=== PATIENT | male | born 1960 | race Caucasian/White ===

== ENCOUNTER → 2016-12-09 | Outpatient (CLI) | payer OTHER ==
--- NOTE | 2016-12-09 13:43 | MR ---
EXAMINATION TYPE: MR shoulder LT wo con DATE OF EXAM: 12/09/2016 COMPARISON: NONE HISTORY: Left shoulder pain TECHNIQUE: Multiplanar, multisequence imaging of the left shoulder is performed without contrast. FINDINGS: Rotator Cuff: There is abnormal signal at the conjoined portion of the insertion of the supraspinatus and infraspinatus tendons measuring 6 mm compatible with a partial tear no evidence of retraction. Acromioclavicular Joint: AC joint appears to be narrowed secondary to hypertrophic changes. Mild mass effect or impingement noted on the rotator cuff. Glenohumeral Joint: Glenohumeral joint is maintained. Inferior glenohumeral ligament appears to be in tact although there is edema along the axillary pouch. Correlate for ligamentous sprain. Labrum: There is abnormal signal adjacent to the posterior superior labrum which may represent a tiny para labral cyst. Tear involving the posterior superior labrum suspected. Biceps Tendon: The long head of biceps is in normal location within bicipital groove. Bone marrow signal: No focal abnormal marrow signal is appreciated. IMPRESSION: 1. There is a 6 mm tear conjoined portion of the rotator cuff tendon at the level of insertion with n o retraction. 2. Arthropathy of the AC joint with mild impingement. 3. Findings suspicious for tear posterior superior labrum. 4. Findings suggestive of a inferior glenohumeral ligament sprain.
== END | disposition home or self-care (01) ==
LOC: RADMRIMAIN 12:37
PROVIDERS: ATTEND Internal Medicine
DX: M75.102 Unspecified rotator cuff tear or rupture of left shoulder, not specified as traumatic (principal); M19.012 Primary osteoarthritis, left shoulder; M25.812 Other specified joint disorders, left shoulder

== ENCOUNTER → 2017-01-21 | Outpatient (CLI) | payer OTHER ==
--- NOTE | 2017-01-21 08:23 | US ---
EXAMINATION TYPE: US liver DATE OF EXAM: 01/21/2017 COMPARISON: Liver ultrasound December 13, 2015 CLINICAL HISTORY: B18.2 CHR VIRAL HEP C. Annual check for hep C, no complaints of pain EXAM MEASUREMENTS: Liver Length: 14.1 cm Gallbladder Wall: 0.2 cm CBD: 0.6 cm Right Kidney: 10.0 x 5.0 x 5.9 cm Pancreas: wnl Liver: wnl, appropriate flow within the portal vn Gallbladder: wnl Evidence for sonographic Naranjo's sign: no CBD: wnl Right Kidney: wnl Scanning of liver shows no worrisome mass or ductal dilatation. Normal monophasic hepatopedal flow to liver is seen in main portal vein on last image saved. IMPRESSION: No worrisome intrahepatic mass or intrahepatic ductal dilatation is seen.
== END | disposition home or self-care (01) ==
LOC: RADUSWWP 06:55
DX: B18.2 Chronic viral hepatitis C (principal)
CPT/HCPCS: 76705

== ENCOUNTER → 2017-01-23 | Outpatient (CLI) | payer OTHER ==
[2017-01-23 11:45] LABS: Prothrombin Time 10.1 sec (9.0-12.0)
[2017-01-23 12:15] LABS: Bilirubin, Delta 0.3 mg/dL (0.0-0.2); Total Bilirubin 0.3 mg/dL (0.2-1.3); Total Protein 8.3 g/dL (6.3-8.2)
[2017-01-25 09:28] LABS: Hepatits C Virus RNA, Quant <12 IU/mL (<12); LOG HCV IU/mL <1.08 (<1.08)
== END | disposition home or self-care (01) ==
LOC: LABWHC1 10:48
PROVIDERS: ATTEND Physician Assistant
DX: B18.2 Chronic viral hepatitis C (principal); E78.5 Hyperlipidemia, unspecified; R53.83 Other fatigue
CPT/HCPCS: 36415; 80051; 80076; 81241; 85025; 85610; 85730; 87522; 93005

== ENCOUNTER → 2017-01-23 | Outpatient (CLI) | payer OTHER ==
[2017-01-23 11:07] LABS: EKG EKG PERFORMED
[2017-01-23 11:36] LABS: Basophils % (A) 0 %; CH 30.7; Eosinophils # (A) 0.1 k/uL (0-0.7); Eosinophils % (A) 1 %; HCT 46.3 % (39.0-53.0); HDW 2.81; HGB 15.7 gm/dL (13.0-17.5); Luc # (Auto) 0.23; Luc % (Auto) 3; Lymphocytes # (A) 2.2 k/uL (1.0-4.8); Lymphocytes % (A) 25 %; MCH 29.9 pg (25.0-35.0); MCHC 33.9 g/dL (31.0-37.0); MCV 88.2 fL (80.0-100.0); Mean Platelet Volume 7.2; Monocytes # (A) 0.6 k/uL (0-1.0); Monocytes % (A) 7 %; Neutrophils # (A) 5.7 k/uL (1.3-7.7); Neutrophils % (A) 64 %; RBC 5.26 m/uL (4.30-5.90); RDW 13.1 % (11.5-15.5); WBC 8.8 k/uL (3.8-10.6); WBC (Perox) 8.27
[2017-01-23 12:14] LABS: Anion Gap 13 mmol/L; Carbon Dioxide 23 mmol/L (22-30); Chloride 104 mmol/L (98-107); Potassium 4.6 mmol/L (3.5-5.1); Sodium 140 mmol/L (137-145)
== END | disposition home or self-care (01) ==
LOC: LABPAT 10:45
PROVIDERS: ATTEND Orthopaedic Surgery
DX: Z01.810 Encounter for preprocedural cardiovascular examination (principal); Z01.812 Encounter for preprocedural laboratory examination; M75.42 Impingement syndrome of left shoulder
CPT/HCPCS: 36415; 80051; 85025; 93005